=== PATIENT | male | born 1960 | race Caucasian/White ===

== ENCOUNTER 2016-12-13 18:09 | Inpatient (IN) | payer MEDICAID, OTHER ==
[2016-12-13] MEDS ORDERED: LORazepam 1 MG TAB PO PRN (22:42)
[2016-12-13] MEDS ORDERED: MAGNESIUM HYDROXIDE 2,400 MG/10 ML CUP PO PRN (22:42)
[2016-12-13] MEDS ORDERED: ZIPRASIDONE 20 MG VIAL IM PRN (22:42)
[2016-12-13] MEDS ORDERED: ACETAMINOPHEN TAB 325 MG TAB PO PRN (22:42)
[2016-12-13] MEDS ORDERED: MAG HYDROX/AL HYDROX/SIMETH 30 ML CUP PO PRN (22:42)
[2016-12-13] MEDS ORDERED: LORazepam 2 MG/ML SYRINGE IM PRN (22:47)
[2016-12-14 09:41] LABS: ALT 37 U/L (21-72); AST 54 U/L (17-59); Alkaline Phosphatase 58 U/L (38-126); Anion Gap 9 mmol/L; Blood Urea Nitrogen 8 mg/dL (9-20); Carbon Dioxide 26 mmol/L (22-30); Chloride 109 mmol/L (98-107); Glucose 141 mg/dL (74-99); Non-African American GFR(MDRD) >60 (>60 ml/min/1.73 sqM); Potassium 3.4 mmol/L (3.5-5.1); Sodium 144 mmol/L (137-145); Total Bilirubin 0.5 mg/dL (0.2-1.3); Total Protein 6.6 g/dL (6.3-8.2)
[2016-12-14 09:46] LABS: Basophils % (A) 1 %; CH 34.1; CHCM 33.4; Eosinophils # (A) 0.1 k/uL (0-0.7); Eosinophils % (A) 2 %; HCT 25.3 % (39.0-53.0); HDW 2.54; HGB 8.2 gm/dL (13.0-17.5); Luc # (Auto) 0.09; Luc % (Auto) 1; Lymphocytes # (A) 1.4 k/uL (1.0-4.8); Lymphocytes % (A) 22 %; MCH 33.3 pg (25.0-35.0); MCHC 32.5 g/dL (31.0-37.0); MCV 102.6 fL (80.0-100.0); Macrocytosis Slight; Mean Platelet Volume 8.2; Monocytes # (A) 0.3 k/uL (0-1.0); Monocytes % (A) 5 %; Neutrophils # (A) 4.6 k/uL (1.3-7.7); Neutrophils % (A) 70 %; RBC 2.46 m/uL (4.30-5.90); RDW 13.5 % (11.5-15.5); WBC 6.6 k/uL (3.8-10.6); WBC (Perox) 6.96
[2016-12-14] MEDS ORDERED: POTASSIUM CHLORIDE ER 20 MEQ TAB.ER PO STA (12:11)
[2016-12-14] MEDS: FLUoxetine HCL 20 MG CAP PO SCH (13:07)
--- NOTE | 2016-12-14 14:50 | P.CONS ---
History of Present Illness - Reason for Consult Consult date: 12/14/16 Medical management - History of Present Illness This is a 56-year-old male patient of Dr. Ramírez Galindo with past medical history of hypertension not on medication, tobacco use and dependence. Patient states he has been depressed and used a razor to cut the left wrist on Sunday. He went to the [facility] and had 9 stitches placed and was then transferred directly to the mental health unit at [facility]. Hemoglobin at 8.2. Patient states that he also had a low hemoglobin at [facility]. Patient may need further workup as an outpatient. Potassium will be replaced. Blood sugar was 141 after eating and patient denies any history of diabetes. TSH was 1.930. Patient is complaining of constant thirst but usually only drinks pop. Review of Systems All systems: negative Constitutional: Denies chills, Denies fever Eyes: denies blurred vision, denies pain Ears, nose, mouth and throat: Denies headache, Denies sore throat Cardiovascular: Denies chest pain, Denies shortness of breath Respiratory: Denies cough Gastrointestinal: Denies abdominal pain, Denies diarrhea, Denies nausea, Denies vomiting Musculoskeletal: Denies myalgias Integumentary: Denies pruritus, Denies rash Neurological: Denies numbness, Denies weakness Psychiatric: Reports depression, Reports hopelessness, Reports suicidal ideation , Denies anxiety Endocrine: Denies fatigue, Denies weight change Past Medical History Past Medical History: Hypertension Past Surgical History: Tonsillectomy Additional Past Alcohol Use History / Comment(s): She is a smoker 4 cigarettes per day on and off for the past 25 years. He states he does not require nicotine patch. He denies any medical marijuana, marijuana, street drug use. He drinks beer 3-5 per day since he was 16 years of age. He is currently working at [employer]. Prior to that he did [employer]. - Past Family History Father Additional Family Medical History / Comment(s): Father at age 83 from heart failure with history of prostate cancer with metastatic disease. Mother Additional Family Medical History / Comment(s): Mother at age 67 from lung cancer and COPD with history of depression and guilt and brace syndrome. Brother(s) Additional Family Medical History / Comment(s): Patient had 4 brothers. One brother has history of myocardial infarction coronary artery disease as well as prostate cancer. A second brother has history of coronary artery disease and myocardial infarction. Third brother has history of prostate cancer. Fourth brother has history of myocardial infarction, CABG, diabetes. Patient has 1 sister with no major medical problems. Patient does not have any children. Medications and Allergies Home Medications Medication Instructions Recorded Confirmed Type No Known Home Medications [No 12/13/16 12/13/16 History Known Home Medications] Allergies Allergy/AdvReac Type Severity Reaction Status Date / Time No Known Allergies Allergy Verified 12/13/16 21:15 Physical Exam Vitals: Vital Signs Temp Pulse Resp BP Pulse Ox 12/14/16 06:51 98.0 F 66 18 111/53 12/13/16 21:12 98.7 F 77 16 133/59 95 Intake and Output 12/13/16 12/14/16 12/14/16 22:59 06:59 14:59 Other: Weight 93.44 kg Gen: This is a 56-year-old male. He is cooperative and appears to be in no acute distress. HEENT: Head is atraumatic, normocephalic. Pupils equal, round. Sclerae is anicteric. NECK: Supple. No JVD. No lymphadenopathy. No thyromegaly. LUNGS: Clear to auscultation. No wheezes or rhonchi. No intercostal retractions. HEART: Regular rate and rhythm. No murmur. ABDOMEN: Soft. Bowel sounds are present. No masses. No tenderness. EXTREMITIES: No pedal edema. No calf tenderness. NEUROLOGICAL: Patient is awake, alert and oriented x3. Cranial nerves 2 through 12 are grossly intact. Results CBC & Chem 7: 12/14/16 08:54 12/14/16 08:54 Labs: Abnormal Lab Results - Last 24 Hours (Table) 12/14/16 12/14/16 Range/Units 08:54 08:54 RBC 2.46 L (4.30-5.90) m/uL Hgb 8.2 L (13.0-17.5) gm/dL Hct 25.3 L (39.0-53.0) % MCV 102.6 H (80.0-100.0) fL Potassium 3.4 L (3.5-5.1) mmol/L Chloride 109 H (98-107) mmol/L BUN 8 L (9-20) mg/dL Glucose 141 H (74-99) mg/dL Albumin 3.4 L (3.5-5.0) g/dL Assessment and Plan Plan: 1. Depression with suicidal ideation. Patient admitted to the mental health unit. Continue current plan of care 2. History of hypertension but taken off medications, stable. Monitor. 3. Self-inflicted laceration to the left wrist status post sutures. No sign of infection. Continue local wound care. 4. Anemia which will need further workup as an outpatient. Patient instructed to follow up with his primary care physician after discharge.. 5. Alcohol abuse. Continue as in #1. Impression and plan of care have been directed as dictated by the signing physician. Cheryl Hodge nurse practitioner acting as scribe for signing physician. Time with Patient: Greater than 30
--- NOTE | 2016-12-14 17:09 | HP ---
DATE OF SERVICE: 12/14/2016 DATE OF ADMISSION: 12/13/2016 IDENTIFYING DATA: The patient is a 56-year-old male. He lives with his older brother, who is disabled. He was referred from [facility] for admission. CHIEF COMPLAINT: The patient was depressed and suicidal. He had anxiety. He had suicide thoughts and had cut his left wrist in a suicide attempt. HISTORY OF PRESENTING ILLNESS: Patient reports that he has had depression problems on and off going back to young adulthood in 1981. He had a psychiatric admission for depression. He was treated with Pamelor for a period of time. Since then he has not been on any psychotropic medications. He says he has had some other bouts of depression. He described his last "major bout" in 1991. 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 He says that he has had other periods of been depressed, though not to the degree that he had in 1991. He notes that over the last several months he has been doing fairly well; he had not noted any clear depressive symptoms. He said he got home from work Sunday early in the morning. When he woke up he said he felt "out of it." He could not identify any clear issues, though felt his mood was very down. He impulsively cut his wrist. He says that looking back over the last several months he does not identify any clear issues that would bring on depression; on the other hand, he notes that he has been sleeping poorly. He sleeps about 5 to 6 hours, though will wake on and off through the night. He has periods with good energy, though also periods where his energy is down and seems to fluctuate on a day-to-day basis. He notes that also along with that, motivation, interest and enjoyment also fluctuate likewise. He does not note any significant emotional issues from his past. He has not suffered trauma by his report. On the other hand, he said several times that he worries about if he would do something that would hurt other people's feelings and that he feels that sometimes he "takes things out on myself." He had trouble describing that in detail. He says that the biggest issue throughout his adulthood that probably relates to depression has been relationships that did not work out. He currently is single and not involved in a relationship. He was vague about substance use issues though acknowledged drinking 3 to 4 beers about 4 days a week. Apparently, according to some referral information from other family members, his drinking may be significantly more than that. The patient denies use of marijuana or any other abusive substances. He denies any experiences of hallucinations, delusions or paranoia. He does get anxiety, though does not clearly describe panic. He does not identify any past traumas or any posttraumatic symptoms. He says his growing up was quite stable. He did acknowledge, however, that his mother suffered from depression and that she would have bouts 3 or 4 times a year when she would get into depression; she would withdraw. She had a trailer behind the house and part of the day she would go in the trailer and do some writing. Along with that she also would drink. He said that she still would be in the house to cook meals and seemed to function okay, though he could acknowledge even going back to quite a young age that this was a prominent issue in the family, namely his mother's episodes of depression and drinking. He said it was more apparent from younger teenage years on. He is currently not on any psychotropic medications. He is admitted for further evaluation. SUBSTANCE USE HISTORY: As above. PAST MEDICAL HISTORY: The patient denies any significant or chronic general health issues. Further medical history and review of systems as per medical consultation. FAMILY AND SOCIAL HISTORY: Patient was the youngest of 6 children. He says he is close to his family. He is currently living with his oldest brother. The brother has had 5 or 6 hospitalizations for CVAs and seizures. The oldest brother is significantly impaired cognitively. Currently the patient works at [employer]. He has been there for 6 years. His working hours are 5 p.m. until 12 to 2 in the morning. Prior to that he worked doing [id number] for 30 years. 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 He says he is just getting back into it. MENTAL STATUS EXAM: Patient was somewhat unkempt in appearance. Eye contact was fairly good. Psychomotor activity was restless. Speech was clear. He answered questions with direct responses. He was somewhat spontaneous and interactive. His affect was blunted. He had an anxious manner. His mood was dysphoric. He seemed somewhat distressed. On cognitive exam, the patient was oriented x3 and alert. Recent and remote memory was intact, attention and concentration fairly good. He could spell "world" forward and backwards and remembered 2 out of 3 objects at 5 minutes. He did adequate calculations. Insight was limited, judgment questionable, fund of knowledge average. ASSESSMENT: This 56-year-old male is diagnosed with major depression. It is noteworthy that he does not clearly recognize having a depressed mood. However, he does report somatic symptoms consistent with depression. Also he does seem to struggle with some emotional issues of self-blame that could go back to childhood things with his mother having depression and substance abuse. An additional factor may be his own drinking, though we do not have a clear picture of that. Strengths include his work ethic and efforts at supporting his oldest brother, who is significantly impaired. Weakness includes lack of insight in regards to emotional issues. DIAGNOSIS: Major depression, chronic and recurrent, with acute exacerbation, severe, without psychotic features. RECOMMENDATIONS: Patient will be admitted for comprehensive medical, psychiatric and psychosocial evaluation. We will make efforts to engage the patient in individual and group therapeutic activities. I will start the patient on Prozac 20 mg a day. Will continue to focus on further assessment and diagnostics. Will need to get a better assessment of alcohol-related issues as well as any potential for psychosocial issues. We will focus on stabilization. Will coordinate with outpatient resources for discharge planning. FROY
[2016-12-15] MEDS: FLUoxetine HCL 20 MG CAP PO SCH (09:13)
--- NOTE | 2016-12-15 12:55 | PN ---
DATE OF SERVICE: 12/15/2016 CHIEF COMPLAINT: The patient was depressed and suicidal. He had anxiety. He had suicide thoughts and had cut his left wrist in a suicide attempt. INTERVAL HISTORY: Patient has been doing fair. He is somewhat withdrawn. He keeps to himself. He has not been attending groups. He says that he has not had any trouble with the start of his medications, which mainly is Prozac. According to family that Social Work had contact with, he likely has had a fairly significant drinking history, probably drinking close to a case a day of beer. He had really minimized drinking on admission. Family has indicated that they would be supportive of his going into a substance use treatment program. It is noted that the patient himself had identified the family as a close unit and that he gets much support from his siblings, several of whom who have initiating contacts to the unit to see how he is doing. The patient slept fairly well last night. He slept about 5-3/4 hours. He has been up today. He says he is a little tired and as one reason why he has not made groups. He has had stable vital signs. This morning at 6:40 his blood pressure was 110/56, pulse 69, respirations 18, temp 98.3. He tolerates his Prozac. MENTAL STATUS: Patient was in his room, lying in the bed. He sat up. He gave good eye contact. Psychomotor activity was slow. Speech is monotone. He answered questions with direct responses. He did not say a lot. His thoughts were clear. His affect was blunted. His mood was reserved. It was difficult to say if he was feeling distressed. ASSESSMENT: I will continue the current diagnosis and treatment plan. At this point, we will continue with treatment for depression. I would add a diagnosis of alcohol dependence, active. We will monitor for any alcohol withdrawal symptoms. We will discuss issues with the patient in this regard. We would look at setting up a family meeting, possibly on Sunday or over the weekend. Will continue to focus on stabilization and discharge planning.
[2016-12-15 13:57] LABS: Magnesium 1.6 mg/dL (1.6-2.3)
--- NOTE | 2016-12-16 09:05 | P.PN ---
Progress Note - Text Interval history: The patient is found in the hallway he follows me to an interview room. He reports he is doing "okay" he was admitted to the mental health unit after attempting suicide by lacerating his left wrist. He required 9 sutures. This was evaluated [facility] prior to his transfer to our hospital. He states that he was able to sleep last night appetite is stable he plans on attending groups today. Mental status exam: The patient is a disheveled male. He is balding but has long hair on the sides and back. He is dressed in his own clothing. Eye contact is appropriate. He has spontaneous speech is fluent he is verbose but nonpressured. He is easily directed in the session. He does demonstrate some circumstantial thought process no tangential thinking loose associations or flight of ideas. He reports no symptoms of psychosis he is reporting no homicidal ideation he feels safe here in the hospital. No verbal or physical aggressiveness. He endorses no auditory or visual hallucinations no specific delusions. Insight and judgment limited. Plan: The patient has been started on Prozac since being in the hospital. He has no questions or concerns regarding the medication. Vital signs reviewed. We will continue to monitor him for safety and encourage his participation in the milieu.
[2016-12-16] MEDS: FLUoxetine HCL 20 MG CAP PO SCH (09:57)
[2016-12-17] MEDS: FLUoxetine HCL 20 MG CAP PO SCH (10:20)
--- NOTE | 2016-12-17 13:07 | P.PN ---
Progress Note - Text Interval history: The patient is found in the hallway he follows me to an interview room. He reports that his mood is improving. He remains compliant with the Prozac he has no questions or concerns regarding the medication. He feels upbeat he has been attending groups. He described how he felt after he had attempted suicide via laceration to his left wrist. He states "it came out of the blue" referring to the thought of killing himself. He endorses no suicidal thoughts. He was glad that family members visited last evening he expects they will visit again tonight. Mental status exam: The patient is an overweight male appearing his stated age. Eye contact is appropriate speech is fluent spontaneous nonpressured. He is pleasant and cooperative. Thought process can be linear he is also circumstantial with spontaneous speech. He reports no current suicidal or homicidal ideation intent or plan he is endorsing no auditory or visual hallucinations. There is no evidence of psychosis. He does not appear hypomanic or manic. Insight and judgment improving. He demonstrates no verbal or physical aggressiveness. Plan: The patient will continue on the Prozac as written we will monitor him for safety and encourage his participation in the milieu. Vital signs reviewed.
[2016-12-18] MEDS: FLUoxetine HCL 20 MG CAP PO SCH (09:57)
--- NOTE | 2016-12-18 11:26 | P.PN ---
Progress Note - Text Interval history: The patient is found in the library he follows me to an interview room. He reports that his mood is slowly improving. He continues to be troubled as to why he impulsively attempted suicide by cutting his wrist and states "he came out of nowhere". He admits that some depressive symptoms were likely building but he didn't think to the severity. We again discussed his alcohol use which seems to have been increasing during team meeting staff reports that he may have been drinking twice as much as he reported on a daily basis. We will discuss the opportunity of attending inpatient chemical dependency treatment again with him in more detail. He has been attending groups and participating. Sleep is been stable appetite stable Mental status exam: The patient is alert he is dressed in his own clothing he has a disheveled appearance. Eye contact is appropriate he describes his mood as being troubled because of his suicide attempt and his impulsive activity. He feels safe in the hospital he has no homicidal thoughts he is endorsing no auditory or visual hallucinations there is no evidence of psychosis. He does not appear hypomanic or manic. He is verbose and can be circumstantial but is easily directed in conversation. Affect is constricted. Insight and judgment limited. He remains oriented to person place and date. Plan: The patient will continue on the Prozac he requires further observation because of this impulsive suicide attempt. He continues to lack insight into the attempt. We need to discuss his use of alcohol further and the appropriate treatment upon discharge from this unit. Social work has been in contact with family members. Vital signs reviewed they're within normal limits.
[2016-12-19] MEDS: FLUoxetine HCL 20 MG CAP PO SCH (08:58)
--- NOTE | 2016-12-19 15:33 | P.PN ---
Progress Note - Text Subjective: 56 male, admitted for attempted suicide. Patient reports that he is feeling better. Patient states that he still is unclear as to exactly what happened. He went to bed feeling ok, not suicidal but then woke and slit his wrist. Patient states that he has had 3-4 episodes of depression in the past, however never had suicidal ideation and never made a suicide attempt. Patient reports on his mother's side depression runs in the family. Patient is currently taking Prozac 20 mg, states he has no side effects to the medication. Patient states he is not feeling depressed at this time, and denies thoughts of harming himself. Patient reports that he was hurt and upset with his sister's report of him drinking 30 beers a day. States because he works 8 hours a day it would be hard for him to be able to drink that much. Patient works at [employer] and has worked there for a number of years, without any problems. He also helps with his brother who has had a stroke, managing his medications and other issues related to his short-term memory problems. Patient reports that he does drink anywhere from 2-3 beers a day and occasionally may have 5-6 beers. Denies vehemently that he is drinking the amount that his sister has suggested. Objective: Mental status exam The patient presents alert, pleasant, and cooperative. Calmly seated without any agitated behavior. Patient reports that his mood is good. Affect is congruent and euthymic. Patient denies having any suicidal or homicidal ideation intent or plan. He denies any auditory or visual hallucinations. There is no evidence of any delusional thought content. Patient's thought process is linear and circumstantial. Speech is fluent and nonpressured. His memory for the suicide is still missing but otherwise memory and concentration is grossly intact for the purposes of this session. Assessment: Patient with a impulsive suicide attempt, slitting of wrist, denies being under the influence of alcohol at the time. History of multiple depressive episodes, with a family history of depression but no suicides. Although not reporting depression nor suicidal ideation, but due to the impulsivity of this attempt patient warrants continued monitoring. No evidence of psychosis, no evidence of tawanda or hypomania.] Plan: We will continue Prozac 20 mg, the family meeting is scheduled for tomorrow, due to the issue related to the amount of alcohol reported by family members, and his impulsive suicide attempt, psychiatric inpatient monitoring is indicated. Possible discharge of this week. Will refer him to [facility], for possible CBT for depression.
[2016-12-19 23:14] LABS: Appearance,Urine Clear (Clear); Bilirubin,Urine Negative (Negative); Glucose,Urine (UA) Negative (Negative); Ketones,Urine Negative (Negative); Leukocyte Esterase,Urine Negative (Negative); Nitrite,Urine Negative (Negative); Protein,Urine Negative (Negative); Specific Gravity,Urine 1.009 (1.001-1.035); UA Billing (MACRO vs. MICRO) CHEM; Urobilinogen,Urine <2.0 mg/dL (<2.0)
[2016-12-20] MEDS: FLUoxetine HCL 20 MG CAP PO SCH (09:29)
--- NOTE | 2016-12-20 15:57 | P.PN ---
Progress Note - Text CC: " I don't understand why they think I have a drinking problem. " History of Present Illness: Patient with suicide attempt, depression, had a family meeting today, see social work note. Patient upset with family that they insist that he is drinking too much. Feels that nobody really sees him so they can't make the statements that they are making about his intake. He admits to drinking on a regular basis, 2-3 beers is typical but may drink up to 6 beers in one sitting. Family members have suggested that he has drank much more than that. He works at [email or web address] he has the evening shift, and states he could not drink the amount they're saying and be able to go to work. States today he is in feeling antsy a little bit down. Denies suicidal ideation. Labs: No new labs to review Mental Status Examination: Patient alert and oriented 3, good eye contact, fair groomed in street clothing. Speech normal volume, rate and production. Coherent, logical and circumstantial thought process. No TERRY, no FOI. No TB/TW/ TI Denied auditory and visual hallucinations. Denied paranoid ideation, delusions or IOR. Memory fair Cognition average intelligence Mood neutral, affect full range, decreased intensity, congruent with mood. Denies suicidal ideation, denies homicidal ideation. Insight partial; Judgement intact for treatment purposes Assessment: Patient with a impulsive suicide attempt, slitting of wrist, denies being under the influence of alcohol at the time. History of multiple depressive episodes, with a family history of depression but no suicides. Today patient was a bit depressed after the family meeting. Denies suicidal ideation.but due to the impulsivity of this attempt patient warrants continued monitoring. No evidence of psychosis, no evidence of tawanda or hypomania.]56-year-old single male, admitted for suicide attempt, cut wrist. Unclear if she was intoxicated at the time it appears that he was not. Family believes he has a drinking problem, but patient vehemently denies. Plan: Continue Prozac 20 mg. Continue inpatient psychiatric treatment, for safety and monitoring. Will plan on discharge Sunday. Will refer him to [facility], for possible CBT for depression.
[2016-12-21] MEDS: FLUoxetine HCL 20 MG CAP PO SCH (08:40)
--- NOTE | 2016-12-21 09:10 | P.PN ---
Progress Note - Text Interval history: The patient is found in the hallway he follows me to an interview room. He reports his mood is a little more down today. He is more recently upset after a family meeting as his family reported he was drinking up to 30 beers a day. He continues to assert that was not true and not even possible given the amount of time he is awake each day. He finds himself uneasy and irritable after that meeting. We discussed that ultimately he knows what he was consuming and it is probably higher than safe limit recommendations. We also discussed that he should appreciate them coming in out of concern and assume it is well intended. He has been attending groups and he finds those helpful. He does socialize on the unit appropriately. Mental status exam: The patient is alert he is an overweight male hygiene grooming adequate eye contact appropriate speech fluent spontaneous nonpressured. He is verbose he can be circumstantial but easily directed. He is reporting no suicidal or homicidal ideation intent or plan no report of auditory or visual hallucinations no report of delusional thought. He does not present hypomanic or manic. There is no evidence of psychosis. Affect is constricted. He demonstrates no tangential thinking with loose associations or flight of ideas. He demonstrates no verbal or physical aggressiveness. Insight and judgment improving. He remains oriented to person place and date. Plan: The patient will continue on his current medication it appears a discharge is planned for tomorrow. We will monitor him for safety and encourage his participation in the milieu. Vital signs reviewed.
[2016-12-22] MEDS ORDERED: FLUoxetine HCL 10 MG CAP PO ONE (09:45)
[2016-12-22] MEDS ORDERED: FLUoxetine HCL 10 MG CAP PO SCH (09:45)
[2016-12-22] MEDS ORDERED: FLUoxetine HCL 20 MG CAP PO STA (09:48)
[2016-12-22] MEDS: FLUoxetine HCL 20 MG CAP PO SCH (09:48)
[2016-12-23] MEDS: FLUoxetine HCL 10 MG CAP PO SCH (09:02)
--- NOTE | 2016-12-23 11:55 | P.PN ---
Progress Note - Text Interval history: Patient is seen in cross coverage today for Dr. Myers. He reports that he slept 6-1/2 hours last night. He reports that he is eating well. He relates that he feels somewhat tired and like in a funk, relays he thinks it may be related to medication side effects. We did talk about the option of changing the Prozac scheduling to bedtime and he prefers to keep it where it is right now. Mental status exam: He is alert and cooperative with the interview. Speech is fluent, not rapid or pressured. Thought processes organized. He denies any thoughts of harm to self or others. He does not show any active evidence of psychosis. His mood he describes as tired. Plan: We'll maintain current psychotropic medication. He'll continue to monitor for any medication side effects. Consider changing Prozac to bedtime but patient prefers to keep it in the morning right now. We'll continue to cover for Dr. Myers through the weekend.
[2016-12-23] MEDS ORDERED: CALAMINE/ZINC OXIDE LOTION 177 ML BTL TOPICAL PRN (17:08)
[2016-12-24] MEDS: FLUoxetine HCL 10 MG CAP PO SCH (08:43)
--- NOTE | 2016-12-24 15:59 | P.PN ---
Progress Note - Text Interval history: Patient seen in cross coverage today in for Dr. Myers. Reports that he is eating well. Reports that he still feels some of the tiredness and like he is in a funk but it seems to be doing better, he relays that it tends to fluctuate. He does describe having a rash and itchiness around his ankles and lower legs which he now has calamine lotion on which does seem to be helping some. Mental status exam: He is alert and cooperative with the interview. His speech is fluent, not rapid or pressured. Thought processes organized. His mood he describes some tiredness and feeling in a funk which fluctuates and his mood tends to fluctuate with this. He denies any thoughts of harm to self or others , there is no evidence of psychosis. The present with any agitation. He does show range of affect. Plan: We'll change the scheduling of Prozac to dinnertime to see if this has any positive impact on possible side effects. We will ask medical to follow-up regarding concerns of rash/ itchiness on lower extremities. Dr. Myers to resume care this patient starting tomorrow.
[2016-12-25] MEDS: AMMONIUM LACTATE 12% LOTION 225 GM BTL TOPICAL SCH ×2 (14:00→21:24)
--- NOTE | 2016-12-25 14:26 | P.PN ---
Progress Note - Text Patient was rechecked with concern regarding sutures in the left wrist due to to a self-inflicted wound. There are no signs of infection and sutures may be removed today. Patient is also complaining of rash on his legs which calamine lotion has not improved. Lac-Hydrin will be added and calamine discontinued.
--- NOTE | 2016-12-25 15:43 | P.PN ---
Progress Note - Text CC: " [ I'm really having a hard time, I had to force myself to get out of bed' s morning] " History of Present Illness: Patient reports that he has been feeling lethargic, not wanting to get out of bed which is atypical for him. He also notes that his thinking is slower. He is not reporting feeling sad or blue but just down. Denies feeling hopeless and helpless or worthless. Denies suicidal ideation Labs: [ ] Mental Status Examination: Patient alert and oriented 3, good eye contact, disheveled in hospital attire. Speech low volume, rate and production. Coherent, logical and goal directed thought process. No TERRY, no FOI. [No TB/TW/ TI] Denied auditory and visual hallucinations. Denied paranoid ideation, delusions or IOR. Memory intact Cognition average Mood [dysphoric], affect and constricted, congruent with mood. Denies suicidal ideation, denies homicidal ideation. Insight partial; Judgement grossly intact Assessment: [ Patient with possible side effects related to the SSRI Prozac, lethargy slowing of cognition. We discussed his past treatment with Pamelor, but due to his age now we'll not use TCAs. Discussed Wellbutrin, side effects. Patient agreed] Plan: Wellbutrin sustained release 100 mg twice a day
[2016-12-25] MEDS: buPROPion SR 100 MG TABLET.ER PO SCH ×2 (16:26→21:24)
[2016-12-25] MEDS ORDERED: FLUoxetine HCL 10 MG CAP PO SCH (17:00)
[2016-12-26] MEDS: buPROPion SR 100 MG TABLET.ER PO SCH ×2 (09:37→21:22)
[2016-12-26] MEDS: AMMONIUM LACTATE 12% LOTION 225 GM BTL TOPICAL SCH ×2 (09:37→21:23)
[2016-12-26 16:24] LABS: Basophils # (A) 0.1 k/uL (0-0.2); Basophils % (A) 1 %; CH 31.3; CHCM 31.5; Eosinophils # (A) 0.2 k/uL (0-0.7); Eosinophils % (A) 4 %; HCT 29.6 % (39.0-53.0); HDW 3.94; HGB 9.2 gm/dL (13.0-17.5); Hypochromasia Marked; Luc # (Auto) 0.17; Luc % (Auto) 3; Lymphocytes # (A) 1.3 k/uL (1.0-4.8); Lymphocytes % (A) 19 %; MCH 30.8 pg (25.0-35.0); MCV 99.6 fL (80.0-100.0); Mean Platelet Volume 7.7; Monocytes # (A) 0.3 k/uL (0-1.0); Monocytes % (A) 5 %; Neutrophils # (A) 4.6 k/uL (1.3-7.7); Neutrophils % (A) 69 %; Poikilocytosis Slight; RBC 2.97 m/uL (4.30-5.90); RDW 13.8 % (11.5-15.5); WBC 6.6 k/uL (3.8-10.6); WBC (Perox) 7.44
[2016-12-26 16:36] LABS: Potassium 4.2 mmol/L (3.5-5.1)
--- NOTE | 2016-12-26 17:07 | P.PN ---
Progress Note - Text INTERVERAL HISTORY:Pt is reporting slowed mentation, hard to get out of bed, stuttering trying to find words. Appears more depressed, lethargic. No thoughts of self harm. Continues to go to group. MENTAL STATUS EXAM: Patient alert and oriented 3, good eye contact, poorly groomed in street clothing. Speech normal volume, rate and production. Coherent, logical and goal directed thought process. No TERRY, no FOI. [No TB/TW/ TI] Denied auditory and visual hallucinations. Denied paranoid ideation, delusions or IOR. Memory grossly intact Cognition average Mood dysphoric, affect full range decreased intensity, congruent with mood. Denies suicidal ideation, denies homicidal ideation. Insight partial; Judgement grossly intact for treatment purposes This is possibly a side effect of prozac, but would assume it should begin to wane and not increase. Has no side effects to welbutrin PLAN:Continue welbutrin 100mg bid. Will get labs tomorrow.CBC, CMP, TSh
[2016-12-26 17:58] LABS: ALT 40 U/L (21-72); AST 35 U/L (17-59); Alkaline Phosphatase 83 U/L (38-126); Anion Gap 9 mmol/L; Blood Urea Nitrogen 16 mg/dL (9-20); Calcium 9.4 mg/dL (8.4-10.2); Carbon Dioxide 27 mmol/L (22-30); Chloride 102 mmol/L (98-107); Glucose 144 mg/dL (74-99); Non-African American GFR(MDRD) >60 (>60 ml/min/1.73 sqM); Potassium 4.2 mmol/L (3.5-5.1); Sodium 138 mmol/L (137-145); Total Bilirubin 0.6 mg/dL (0.2-1.3); Total Protein 7.9 g/dL (6.3-8.2)
[2016-12-27] MEDS: AMMONIUM LACTATE 12% LOTION 225 GM BTL TOPICAL SCH ×2 (08:12→20:56)
[2016-12-27] MEDS: buPROPion SR 100 MG TABLET.ER PO SCH (08:13)
[2016-12-27 14:21] VITALS: BMI 30.2
[2016-12-27] MEDS ORDERED: DOCUSATE 100 MG CAP PO PRN (15:10)
--- NOTE | 2016-12-27 15:20 | P.PN ---
Progress Note - Text INTERVERAL HISTORY:Patient continues to appear pale, fatigued, dysphoric. This is a change from a week ago. Today he was in his room asleep in bed, which is atypical of him. He reports feeling tired, head full, runny nose. He also c/o constipation. He shows his lower legs, that still have rash that may have begun with prozac. No itching now. When asked if this change in mood has occured before he says only on the day of his suicide, he went to bed feeling fine, then woke and slit his wrist. Denies other episodes of change from happy to sad/irritable. No spending sprees, risk taking behavior. No family hx of bipolar. Denies thoughts of suicide MENTAL STATUS EXAM: Patient alert and oriented 3, good eye contact, disheveled in hospital attire. Speech low volume, rate and production. Coherent, logical and circumstantial thought process. No TERRY, no FOI. [No TB/TW /TI] Denied auditory and visual hallucinations. Denied paranoid ideation, delusions or IOR. Memory [grossly intact ] Cognition[average] Mood dysphoric, affect constricted, congruent with mood. Denies suicidal ideation, denies homicidal ideation. Insight limited; Judgment intact PLAN:Will continue to evaluate patient's evolving depression, required inpatient psychiatric hospitalization due to his recent impulsive suicide attempt and his deterioration of mood but it may possibly be due to SSRI and or antidepressant,. Pt does not give information to suggest bipolar disorder. Will increase bupropion to 150mg bid. Colace prn.
[2016-12-27] MEDS: buPROPion SR 150 MG TABLET.ER PO SCH (20:55)
[2016-12-28] MEDS: AMMONIUM LACTATE 12% LOTION 225 GM BTL TOPICAL SCH ×2 (08:54→22:10)
[2016-12-28] MEDS: buPROPion SR 150 MG TABLET.ER PO SCH ×2 (08:54→20:22)
[2016-12-28 13:28] LABS: Hemoglobin A1C 5.3 % (4.2-6.1)
--- NOTE | 2016-12-28 15:26 | P.PN ---
Progress Note - Text INTERVERAL HISTORY: Patient continues to report slowed mentation, physically slowed, fatigue, sleeping more hours than he usually does. Reviewed his lab work with him and his blood pressure, his blood pressure is on the low side today's reading of 86/54 and then later in the morning 109/58. Discussed that he has a different routine here, normally he sleeps 4 AM to 9 AM. With the maximum amount of sleep about 5 hours versus here he is sleeping 7 hours and he is taking a 3 hour nap. Now this could be due to the effects of bupropion but it is very atypical. Could be that he has a virus she does have some sniffling and runny nose and sensation of his sinuses being full. His presentation and course is atypical, in that he came in after a suicide attempt without any appearance of depression and no suicidal ideation, and now he's appearing almost severely depressed. However today he had more affect. We discussed medication and we will increase the bupropion tomorrow 200 mg twice a day. I'll also check his hemoglobin A1c. Laboratory Tests 12/26/16 12/26/16 16:00 16:00 WBC 6.6 RBC 2.97 L Hgb 9.2 L Hct 29.6 L TSH 1.230 Selected Entries 12/26/16 12/26/16 12/27/16 06:42 18:55 06:55 Blood Pressure 127/71 [Right Arm Sitting] Blood Pressure 115/61 110/67 [Right Arm Supine] Blood Pressure 89 Mean [Right Arm Sitting] Blood Pressure 79 81 Mean [Right Arm Supine] 12/28/16 12/28/16 06:46 08:58 Blood Pressure 109/58 [Right Arm Sitting] Blood Pressure 86/54 [Right Arm Supine] Blood Pressure 75 Mean [Right Arm Sitting] Blood Pressure 64 Mean [Right Arm Supine] MENTAL STATUS EXAM:A&Ox3, dressed in PJs, hair disheveled, somewhat of a shuffling gait. Pleasant and cooperative, good eye contact, speech low volume, normal rate and production. No psychosis. Mood neutral-dysphoric, affect constricted but brighter today, with a few smiles. No suicidal ideation. PLAN:Will increase bupropion to 200mg bid. Monitor rash on lower legs. Recommended using extra salt on his food to increase his BP. Consider discharge on Sunday
[2016-12-29] MEDS: buPROPion SR 100 MG TABLET.ER PO SCH ×2 (09:12→21:00)
[2016-12-29] MEDS: AMMONIUM LACTATE 12% LOTION 225 GM BTL TOPICAL SCH ×2 (11:08→21:03)
--- NOTE | 2016-12-29 14:19 | P.PN ---
Progress Note - Text INTERVERAL HISTORY: Patient continues to report slowed mentation, physically slowed, fatigue, tried to sleep fewer hours but still sluggish. His BP remains at low end, states he used to run 140/90 on regular basis, he was taking Cozaar. He is not taking any medication for HTN. No A1c. Selected Entries 12/29/16 06:35 Blood Pressure 92/51 [Right Arm Sitting] MENTAL STATUS EXAM:A&Ox3, dressed in street clothing, hair combed, somewhat of a shuffling gait. Pleasant and cooperative, good eye contact, speech low volume , normal rate and production. No psychosis. Mood neutral-dysphoric, affect constricted but brighter today, with a few smiles. No suicidal ideation. PLAN:Will continue bupropion 200mg bid thru the weekend Monitor rash on lower legs. Recommended using extra salt on his food to increase his BP. Consider discharge on Sunday PLAN:
--- NOTE | 2016-12-30 08:00 | P.PN ---
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 He reports that his mood has been slow and sluggish. He reports she's been sleeping more. He apparently had a reaction to the Prozac which has been changed to Wellbutrin SR 200 mg twice daily. He demonstrates a rash on his lower extremity. He is perceiving no problems with the Wellbutrin SR currently. He continues to participate in the milieu. He demonstrates no agitated behavior. Appetite stable. He is looking forward to his mood improving. Mental status exam: The patient is alert he has a disheveled appearance hygiene is adequate he is dressed in his own clothing. He is pleasant cooperative speech is spontaneous fluent he is verbose but nonpressured. He reports feeling slow and sluggish. He is reporting no acute suicidal or homicidal ideation intent or plan. No report or evidence of psychosis he does not appear hypomanic or manic. Insight and judgment slowly improving. He demonstrates no verbal or physical aggressiveness. He is oriented to person place and date. Affect is constricted but he does demonstrate some range of affect during conversation he does make attempts at using humor appropriately. Plan: The patient will continue on Wellbutrin SR 200 mg twice daily. We will monitor for any side effects. Vital signs reviewed. He is encouraged to continue participating in the milieu and we will monitor him for safety.
[2016-12-30] MEDS: AMMONIUM LACTATE 12% LOTION 225 GM BTL TOPICAL SCH ×2 (09:01→21:00)
[2016-12-30] MEDS: buPROPion SR 100 MG TABLET.ER PO SCH ×2 (09:01→20:59)
[2016-12-30 11:20] LABS: Basophils # (A) 0.1 k/uL (0-0.2); Basophils % (A) 1 %; CH 30.6; CHCM 31.6; Eosinophils # (A) 0.3 k/uL (0-0.7); Eosinophils % (A) 4 %; HCT 29.3 % (39.0-53.0); HDW 4.35; HGB 9.2 gm/dL (13.0-17.5); Hypochromasia Marked; Luc # (Auto) 0.11; Luc % (Auto) 2; Lymphocytes # (A) 1.4 k/uL (1.0-4.8); Lymphocytes % (A) 21 %; MCH 30.1 pg (25.0-35.0); MCHC 31.3 g/dL (31.0-37.0); MCV 96.4 fL (80.0-100.0); Mean Platelet Volume 7.6; Monocytes # (A) 0.5 k/uL (0-1.0); Monocytes % (A) 7 %; Neutrophils # (A) 4.4 k/uL (1.3-7.7); Neutrophils % (A) 66 %; Poikilocytosis Moderate; RBC 3.04 m/uL (4.30-5.90); RDW 14.1 % (11.5-15.5); WBC 6.7 k/uL (3.8-10.6); WBC (Perox) 6.23
[2016-12-30 11:36] LABS: ALT 39 U/L (21-72); AST 27 U/L (17-59); Alkaline Phosphatase 77 U/L (38-126); Anion Gap 10 mmol/L; Blood Urea Nitrogen 14 mg/dL (9-20); Calcium 9.6 mg/dL (8.4-10.2); Carbon Dioxide 28 mmol/L (22-30); Chloride 103 mmol/L (98-107); Glucose 140 mg/dL (74-99); Non-African American GFR(MDRD) >60 (>60 ml/min/1.73 sqM); Potassium 3.9 mmol/L (3.5-5.1); Sodium 141 mmol/L (137-145); Total Bilirubin 0.5 mg/dL (0.2-1.3); Total Protein 7.5 g/dL (6.3-8.2)
--- NOTE | 2016-12-31 07:48 | P.PN ---
Progress Note - Text Interval history: The patient is found in the library follows me to an interview room. He states he continues to feel very tired. Recent lab work reveals that his hemoglobin is still quite low at 9.2. This is stable however from when it was drawn on 12/26/2016. He believes that it is due to his self- induced laceration as he states he "bled a lot". He does not recall any history of iron deficiency anemia. Predominantly today he feels tired he states he's trying to be optimistic. He does utilize humor when possible. He states that his his defense mechanism. Appetite stable. He has been attending groups he has demonstrated no agitated behavior. Vital signs reviewed they're within normal limits. Mental status exam: The patient is an overweight male he has a disheveled appearance hygiene is adequate is dressed in his own clothing wearing jeans and a T-shirt. Eye contact is good speech is fluent spontaneous nonpressured. Affect is constricted he denies any acute suicidal or homicidal ideation intent or plan there is no report or evidence of psychosis he does not appear hypomanic or manic. He demonstrates no verbal or physical aggressiveness. Insight and judgment slowly improving. He is oriented to person place and date. Throughout the session he appropriately uses humor. The rash on his legs appear stable with no worsening. Plan: The patient will continue on the Wellbutrin SR twice daily. He is encouraged to continue hydrating he reports eating sufficiently. He is encouraged to attend groups. We will continue to monitor his leg rash. At this point it is assumed the anemia secondary to blood loss due to his self- inflicted wound however consider iron deficiency workup.
[2016-12-31] MEDS: buPROPion SR 100 MG TABLET.ER PO SCH ×2 (09:27→21:05)
[2016-12-31] MEDS: AMMONIUM LACTATE 12% LOTION 225 GM BTL TOPICAL SCH ×2 (09:28→21:06)
[2016-12-31] MEDS: FERROUS SULFATE 325 MG TAB PO SCH (12:11)
--- NOTE | 2016-12-31 14:21 | P.PN ---
Subjective This is a 56-year-old male patient of Dr. Ramírez Galindo with past medical history of hypertension not on medication, tobacco use and dependence. Patient states he has been depressed and used a razor to cut the left wrist on Sunday. He went to the [facility] and had 9 stitches placed and was then transferred directly to the mental health unit at [facility]. Hemoglobin at 8.2. Patient states that he also had a low hemoglobin at [facility]. Patient may need further workup as an outpatient. Potassium will be replaced. Blood sugar was 141 after eating and patient denies any history of diabetes. TSH was 1.930. Patient is complaining of constant thirst but usually only drinks pop. 12/30: I was asked to reevaluate the patient because of increased fatigue and tiredness and he appeared to be pale, patient does appear to have a a chronic anemia, MRSA the labs were okay, patient will be started on iron 325 mg orally once every day. He will need to have a workup for anemia as an outpatient. Objective - Vital Signs Vital signs: Vital Signs Temp 98.3 F 12/31/16 06:56 Pulse 70 12/31/16 06:56 Resp 12 12/31/16 06:56 BP 131/62 12/31/16 06:56 Pulse Ox 100 12/26/16 18:55 - Exam Gen: This is a 56-year-old male. He is cooperative and appears to be in no acute distress. HEENT: Head is atraumatic, normocephalic. Pupils equal, round. Sclerae is anicteric. NECK: Supple. No JVD. No lymphadenopathy. No thyromegaly. LUNGS: Clear to auscultation. No wheezes or rhonchi. No intercostal retractions. HEART: Regular rate and rhythm. No murmur. ABDOMEN: Soft. Bowel sounds are present. No masses. No tenderness. EXTREMITIES: No pedal edema. No calf tenderness. NEUROLOGICAL: Patient is awake, alert and oriented x3. Cranial nerves 2 through 12 are grossly intact. - Labs CBC & Chem 7: 12/30/16 10:45 12/30/16 10:45 Labs: Abnormal Lab Results - Last 24 Hours (Table) 12/30/16 12/30/16 Range/Units 10:45 10:45 RBC 3.04 L (4.30-5.90) m/uL Hgb 9.2 L (13.0-17.5) gm/dL Hct 29.3 L (39.0-53.0) % Glucose 140 H (74-99) mg/dL Assessment and Plan Plan: Assessment and Plan Plan: 1. Depression with suicidal ideation. Patient admitted to the mental health unit. Continue current plan of care 2. History of hypertension but taken off medications, stable. Monitor. 3. Self-inflicted laceration to the left wrist status post sutures. No sign of infection. Continue local wound care. 4. Anemia which will need further workup as an outpatient. Patient instructed to follow up with his primary care physician after discharge, start the patient on iron 325 mg orally once every day.
[2017-01-01 06:47] VITALS: BP 91/53; PULSE 98; RESP 18; TEMP 97.9
[2017-01-01] MEDS: FERROUS SULFATE 325 MG TAB PO SCH (09:20)
[2017-01-01] MEDS: buPROPion SR 100 MG TABLET.ER PO SCH (09:20)
[2017-01-01] MEDS: AMMONIUM LACTATE 12% LOTION 225 GM BTL TOPICAL SCH (09:20)
--- NOTE | 2017-01-01 10:35 | P.PN ---
Progress Note - Text INTERVERAL HISTORY:Patient continues to report severe fatigue. Medicine consult recommended iron for the anemia. No recommendations for hypotension. He continues to sleep more than his normal average. Denies thoughts of suicide, denies feeling depressed. MENTAL STATUS EXAM:A&Ox 3, walking with shuffling gait, slow, appearing fatigued , slightly disheveled. Mood neutral, affect full range but decreased intensity. Denies suicidal ideation. A:unclear as to the source of his fatigue, possibly due to anemia. No evidence of psychosis. Presentation of suicide atypical and patient continues to display atypical course. Depression, unspecified Suicide attempt Anemia PLAN: Will continue inpatient stay, discussed him reaching out to brother for possible discharge tomorrow. Will continue bupropion 200mg Will need PCP f/u for anemia and hypotension
--- NOTE | 2017-01-01 11:54 | P.DS ---
Providers Date of admission: 12/13/16 20:43 Expected date of discharge: 01/01/17 Attending physician: Melissa Myers MD Consults: 12/29/16 14:34 Consult Physician Routine Consulting Provider: Modesta Long Consult Reason/Comments: Medical Management Do you want consulting provider notified?: Yes Primary care physician: Stated None Hospital Course: Patient was admitted to the mental health unit after attempting suicide by lacerating his left wrist. He required 9 sutures. This was evaluated J[facility] prior to his transfer to our hospital. Patient denied being depressed, intoxicated, worried on the night of his attempt. He denied suicidal ideation throughout his hospital stay. Patient did not endorse symptoms of depression. He was started on Prozac 20mg, this was increased to 30mg, he developed rash on his lower legs. Prozac was discontinued, rash is slowly resolving. Soon after the increase of prozac he began to experience fatigue, hypersomnia, it was felt prozac likely culprit. Welbutrin was started and gradually titrated up to 200mg po bid. He has continued to deny suicidal ideation, no dysphoria but fatigue primary symptom. Medicine consult obtained, anemia diaganosed and patient started on iron 325mg daily. He will continue with bupropion SA 200mg bid. DSM V Depression, unspecified Pertinent Studies: none Procedures: sutures removed. Patient Condition at Discharge: Stable Plan - Discharge Summary New Discharge Prescriptions: Docusate [Colace] 100 mg PO DAILY PRN #30 cap PRN Reason: Constipation Ferrous Sulfate [Iron (65 MG Elemental)] 325 mg PO W/LUNCH #30 tab buPROPion SR [Wellbutrin SR] 200 mg PO BID #120 tablet.er Discharge Medication List Docusate [Colace] 100 mg PO DAILY PRN #30 cap 01/01/17 [Rx] Ferrous Sulfate [Iron (65 MG Elemental)] 325 mg PO W/LUNCH #30 tab 01/01/17 [Rx] buPROPion SR [Wellbutrin SR] 200 mg PO BID #120 tablet.er 01/01/17 [Rx] Follow up Appointment(s)/Referral(s): Gustavo Galindo DO [REFERRING] - 1 Week Activity/Diet/Wound Care/Special Instructions: Per Emma Paris documentation, follow up with [facility] in 1 week: [phone] due to the laceration on your left forearm. Discharge Disposition: HOME SELF-CARE
== END 2017-01-01 15:17 | disposition home or self-care (01) | DRG 885 ==
LOC: 3MHU 20:43
PROVIDERS: ADMIT Psychiatry & Neurology Addiction Medicine; ATTEND Psychiatry & Neurology Addiction Medicine
DX: F33.2 Major depressive disorder, recurrent severe without psychotic features (principal); R45.851 Suicidal ideations; I10 Essential (primary) hypertension; F10.20 Alcohol dependence, uncomplicated; D50.0 Iron deficiency anemia secondary to blood loss (chronic); S61.512A Laceration without foreign body of left wrist, initial encounter; F12.90 Cannabis use, unspecified, uncomplicated; K59.00 Constipation, unspecified; X78.9XXA Intentional self-harm by unspecified sharp object, initial encounter; Z79.899 Other long term (current) drug therapy; Z81.8 Family history of other mental and behavioral disorders; Z82.49 Family history of ischemic heart disease and other diseases of the circulatory system; Z87.891 Personal history of nicotine dependence; L27.0 Generalized skin eruption due to drugs and medicaments taken internally; T43.225A Adverse effect of selective serotonin reuptake inhibitors, initial encounter
CPT/HCPCS: 80051; 80053; 81003; 82977; 83036; 83735; 84443; 84630; 85025